=== PATIENT | female | born 2000 | race African-American/Black ===

== ENCOUNTER 2020-05-04 11:00 | Emergency (ER) | payer OTHER ==
--- NOTE | 2020-05-04 11:11 | ED Physician Documentation ---
PD HPI UPPER EXT INJURY - Stated complaint Stated Complaint: LT HAND LAC - History obtained from History obtained from: Patient - History of Present Illness Location: Left, Hand Type of injury: Laceration (cut web space between little and ring finger on edge of pallat at work. No numbness nor weakness.) Where injury occurred: Work Timing - onset: Today Timing - duration: Hours (1) Timing - details: Abrupt onset Worsened by: Palpating. No: Moving Associated symptoms: No: Weakness, Numbness Similar symptoms before: Has not had sx before Review of Systems Constitutional: denies: Fever, Chills Nose: denies: Rhinorrhea / runny nose, Congestion Throat: denies: Sore throat Respiratory: denies: Cough Skin: reports: Laceration (s) Neurologic: denies: Focal weakness, Numbness PD PAST MEDICAL HISTORY - Past Medical History Past Medical History: No - Present Medications Home Medications: Ambulatory Orders Medication Instructions Recorded Confirmed No Known Home Medications 05/04/20 05/04/20 - Allergies Allergies/Adverse Reactions: Allergies Allergy/AdvReac Type Severity Reaction Status Date / Time No Known Drug Allergies Allergy Verified 05/04/20 11:10 PD ED PE NORMAL - Vitals Vital signs reviewed: Yes - General General: Alert and oriented X 3, No acute distress, Well developed/nourished - Derm Derm: Normal color, Warm and dry - Extremities Extremities: Other (web space between little and ring fingers with laceration to fatty tissue. No deep structures involved. Able to flex and extend okay. Minimal bleeding. no FB. ) - Neuro Neuro: No motor deficit, No sensory deficit Results - Vitals Vitals: Vital Signs - 24 hr 05/04/20 11:10 Temperature 37.4 C Heart Rate 77 Respiratory 18 Rate Blood Pressure 153/91 H O2 Saturation 97 Oxygen O2 Source Room air Procedures - Laceration (location) left hand Length in cm: 3 Wound type: Curved, Into subcut fat, Clean Neurovascular status: Sensory intact, Motor intact, Vascular intact Tendon involvement: Tendon intact. No: Tendon Injury Anesthesia: Lidocaine 1% with epi Wound Preparation: Irrigated copiously NS, Wound explored, To the base. No: FB identified Skin layer closure: Nylon, Running, Size #-0 - enter number (4), Sutures - enter # (13) Other: Patient tolerated well, No complications, Neurovascular intact, Dressing applied, Tetanus UTD Complexity: Simple PD MEDICAL DECISION MAKING - ED course Complexity details: considered differential, d/w patient Departure - Departure Disposition: 01 Home, Self Care Clinical Impression: Laceration of left hand Qualifiers: Encounter type: initial encounter Foreign body presence: without foreign body Qualified Code(s): S61.412A - Laceration without foreign body of left hand, initial encounter Condition: Stable Record reviewed to determine appropriate education?: Yes Instructions: ED Laceration Hand Follow-Up: JOY Nelson [Provider Group] Comments: Gentle use of the left hand for a few days while the initial wound starts healing. Progress to regular use over several days to a week. Suture removal approximately 10 days. Tylenol or ibuprofen as needed for pains. My suture care instructions: it is okay to wash and shower. Clean off the wound twice a day with soap and water, or peroxide and water. Apply some antibiotic ointment to it to keep it moist. Also to watch for signs of infection such as purulence, redness or increasing pain. Return to your primary care or the ER at the specified time for suture removal. Discharge Date/Time: 05/04/20 12:29
[2020-05-04 11:12] VITALS: BP 153/91
== END 2020-05-04 12:29 | disposition home or self-care (01) ==
LOC: ED 11:00
DX: S61.412A Laceration without foreign body of left hand, initial encounter (principal); W26.8XXA Contact with other sharp object(s), not elsewhere classified, initial encounter; Y92.89 Other specified places as the place of occurrence of the external cause; Y99.0 Civilian activity done for income or pay
CPT/HCPCS: 12002; 99282

== ENCOUNTER 2020-05-15 16:18 | Emergency (ER) | payer OTHER ==
[2020-05-15 16:23] VITALS: BP 122/66
--- NOTE | 2020-05-15 16:40 | ED Physician Documentation ---
PD HPI WOUND RECHECK - Stated complaint Stated Complaint: STITCH REMOVAL - Chief complaint Chief Complaint: Laceration - Histroy obtained from History obtained from: Patient - History of Present Illness Location: Other (L hand) Timing - onset: How many days ago (10) Pain level max: 0 Pain level now: 0 Associated symptoms: No: Fever, Redness, Swelling, Drainage, Pain - Additional information Additional information: Sutures were placed 10 days ago in the emergency department. Here for removal. No symptoms currently Review of Systems Constitutional: denies: Fever : denies: Now EGA PD PAST MEDICAL HISTORY - Past Medical History Past Medical History: No - Past Surgical History Past Surgical History: No - Present Medications Home Medications: Ambulatory Orders Medication Instructions Recorded Confirmed No Known Home Medications 05/04/20 05/15/20 - Allergies Allergies/Adverse Reactions: Allergies Allergy/AdvReac Type Severity Reaction Status Date / Time No Known Drug Allergies Allergy Verified 05/15/20 16:23 - Social History Does the pt smoke?: No Smoking Status: Never smoker Does the pt drink ETOH?: No Does the pt have substance abuse?: No - Immunizations Immunizations: TDAP current <10years PD ED PE NORMAL - Vitals Vital signs reviewed: Yes - General General: Alert and oriented X 3, No acute distress - HEENT HEENT: Moist mucous membranes - Derm Derm: Warm and dry - Extremities Extremities: Other (Left hand sutures in place in between the fourth and fifth digits in the webspace. No signs of infection. No dehiscence) - Neuro Neuro: Alert and oriented X 3 - Psych Psych: Normal mood, Normal affect Results - Vitals Vitals: Vital Signs - 24 hr 05/15/20 16:20 Temperature 36.4 C L Heart Rate 91 Respiratory 15 Rate Blood Pressure 122/66 O2 Saturation 100 Oxygen O2 Source Room air Procedures - Suture/staple Removal (location) Left hand Suture/staple removal: No complications, Other (All sutures were removed. 2 running sutures were in place and these were removed) PD MEDICAL DECISION MAKING - ED course Complexity details: considered differential, d/w patient ED course: Sutures removed. Tolerated well. No complications. This document was made in part using voice recognition software. While efforts are made to proofread this document, sound alike and grammatical errors may occur. Departure - Departure Disposition: 01 Home, Self Care Clinical Impression: Visit for suture removal Condition: Good Instructions: ED Stap Removal No Complication Follow-Up: your,doctor as needed [Other] Comments: Continue to be gentle with your hand for the next 1 to 2 days. Return if you worsen. Return for redness, swelling or drainage from the wound. Your sutures were removed today
== END 2020-05-15 16:42 | disposition home or self-care (01) ==
LOC: ED 16:18
DX: S61.412D Laceration without foreign body of left hand, subsequent encounter (principal); Z48.02 Encounter for removal of sutures
CPT/HCPCS: 99281

== ENCOUNTER 2021-04-08 18:22 | Emergency (ER) | payer OTHER ==
[2021-04-08 18:43] VITALS: BP 140/70
--- NOTE | 2021-04-08 20:49 | ED Physician Documentation ---
PD HPI FEMALE - Stated complaint Stated Complaint: FEMALE - Chief complaint Chief Complaint: Abd Pain - History obtained from History obtained from: Patient - Additional information Additional information: 20-year-old female who presents with concern for possible retained tampon. She states she put on an earlier today and cannot remember if she took it out. She has no vaginal pain, no vaginal discharge other than period. Review of Systems Ten Systems: 10 systems reviewed and negative : reports: Vaginal bleeding (Is on menses). denies: Dysuria, Frequency, Hesitancy, Unable to Void, Incontinent, Hematuria PD PAST MEDICAL HISTORY - Past Medical History Past Medical History: No - Past Surgical History Past Surgical History: No - Present Medications Home Medications: Ambulatory Orders Medication Instructions Recorded Confirmed No Known Home Medications 05/04/20 05/15/20 - Allergies Allergies/Adverse Reactions: Allergies Allergy/AdvReac Type Severity Reaction Status Date / Time No Known Drug Allergies Allergy Verified 04/08/21 18:44 - Social History Does the pt smoke?: No Smoking Status: Never smoker Does the pt drink ETOH?: No Does the pt have substance abuse?: No - Immunizations Immunizations: TDAP current <10years PD ED PE NORMAL - Vitals Vital signs reviewed: Yes - General General: Alert and oriented X 3, No acute distress, Well developed/nourished - HEENT HEENT: Atraumatic, Pharynx benign - Neck Neck: Supple, no meningeal sign, No JVD - Respiratory Respiratory: No respiratory distress - Abdomen Abdomen: Normal bowel sounds, Soft, Non tender, Non distended - Female Female : Other (Speculum exam performed, normal vaginal canal, no foreign body noted, small amount of Menstrual bleeding, cervix closed and healthy-appearing) Results - Vitals Vitals: Vital Signs - 24 hr 04/08/21 18:41 Temperature 36.9 C Heart Rate 78 Respiratory 16 Rate Blood Pressure 140/70 H O2 Saturation 97 Oxygen O2 Source Room air PD MEDICAL DECISION MAKING - ED course Complexity details: d/w patient ED course: Patient presented with possible retained tampon. Vaginal exam was performed and no tampon noted, no other concerns today. Departure - Departure Disposition: 01 Home, Self Care Clinical Impression: Vagina bleeding Condition: Good Comments: You presented w/ concern for tampon left in the vagina. I did a speculum exam and did not see any foreign body in the vaginal canal.
== END 2021-04-08 21:05 | disposition home or self-care (01) ==
LOC: ED 18:22
DX: Z71.1 Person with feared health complaint in whom no diagnosis is made (principal)
CPT/HCPCS: 99281

== ENCOUNTER 2021-04-08 22:26 | Emergency (ER) | payer OTHER ==
[2021-04-08 22:35] VITALS: BP 124/72
--- NOTE | 2021-04-08 23:44 | ED Physician Documentation ---
History of Present Illness - Stated complaint Stated Complaint: FEMALE - Chief complaint Chief Complaint: General - History obtained from History obtained from: Patient - Additonal information Additional information: 20-year-old woman presents to the ED a second time for evaluation for a tampon in the vagina. She was just seen by a nurse practitioner Makayla, underwent a thorough pelvic exam including speculum exam and was found not to have a tampon in the vagina but she is still concerned that she has one. Review of Systems : reports: Other (concern for tampon lodged in vagina) PD PAST MEDICAL HISTORY - Past Medical History Past Medical History: No - Past Surgical History Past Surgical History: No - Present Medications Home Medications: Ambulatory Orders Medication Instructions Recorded Confirmed No Known Home Medications 05/04/20 04/08/21 - Allergies Allergies/Adverse Reactions: Allergies Allergy/AdvReac Type Severity Reaction Status Date / Time No Known Drug Allergies Allergy Verified 04/08/21 22:34 - Social History Does the pt smoke?: No Smoking Status: Never smoker Does the pt drink ETOH?: No Does the pt have substance abuse?: No - Immunizations Immunizations: TDAP current <10years - POLST Patient has POLST: No PD ED PE NORMAL - Vitals Vital signs reviewed: Yes - General General: Alert and oriented X 3, No acute distress, Well developed/nourished - HEENT HEENT: Atraumatic, PERRL, EOMI - Abdomen Abdomen: Non tender, Non distended - Female Female : Laser Engineer present (RN), Other (Normal external female genitalia. Speculum exam with blood in the vaginal vault. Cervix closed. No foreign body. Bimanual exam without evidence of foreign body. Nontender with no masses to bilateral adnexa and no cervical motion tenderness.) Results - Vitals Vitals: Vital Signs - 24 hr 04/08/21 22:32 Temperature 36.8 C Heart Rate 89 Respiratory 16 Rate Blood Pressure 124/72 O2 Saturation 100 Oxygen O2 Source Room air PD MEDICAL DECISION MAKING - ED course ED course: 20-year-old woman presents with persistent concerns about tampon stuck in the vagina. Second pelvic exam was performed and she was reassured. Departure - Departure Disposition: 01 Home, Self Care Clinical Impression: Encounter for medical screening examination Condition: Good Instructions: ED Screening Exam Medical Nonurgent Comments: You were seen in the emergency department to check for tampon. There is definitely no tampon in the vagina. I found no other abnormalities on exam. you do appear to be menstruating. Please follow-up with your primary doctor and return to the emergency department if you have any new or worsening symptoms or other concerns. Discharge Date/Time: 04/08/21 23:47
== END 2021-04-08 23:47 | disposition home or self-care (01) ==
LOC: ED 22:26
DX: Z71.1 Person with feared health complaint in whom no diagnosis is made (principal)
CPT/HCPCS: 99281